=== PATIENT | female | born 1980 | race Caucasian/White ===

== ENCOUNTER 2022-07-04 00:01 | Day surgery (SDC) | payer BC, SELFPAY ==
[2022-06-27 13:51] VITALS: BMI 29.5
--- NOTE | 2022-06-27 13:53 | SUR.PREOP ---
Report to the Outpatient Waiting Room, entrance under the green pavilion located off [facility], at time_0900 on date __07/04/22 . Planned Procedure Time: _1100 . Time changes happen often and if your time is changed the preop area will call you the afternoon before. - You and your visitor will be asked to self-screen and do not enter if you have any COVID symptoms. - Only one visitor is requested with a max of two and NO children visitors are allowed at this time. - The patient visitor may be requested to leave or wait in car when not with patient due to distancing restrictions. - A mask is optional within the hospital. Patients may have clear liquids (water, carbonated beverages, clear teas, apple juice) until 3 hours prior to surgery with a maximum of 20 ounces. - No food from midnight until time of surgery - Infants may have breast milk until 4 hours before surgery, infant formula 6 hours prior to surgery. - Children will be allowed to drink immediately following surgery. If applicable, please bring a bottle or sippy cup to assist with drinking. Juice, water, soda, and popsicles are readily available. For infants on formula, please bring formula the day of surgery. Pacifiers are allowed. Take the following medications with a SIP of water the morning of surgery: __n/a Medications to discontinue per physician ___n/a Date to take last dose___n/a Please no make-up, nail turkmen, hairspray, perfume, deodorant, or body powder the day of surgery. No jewelry (including any body piercings) or valuables the day of surgery, leave them at home. Please take a shower or bath the night before, or the morning of, surgery with an antibacterial soap. Wear comfortable, loose fitting clothing. Children are encouraged to wear pajamas. - Jewelry must be removed prior to entering the operating room. Rings and piercings that are not removed may be cut off. - The hospital will not accept responsibility for valuables. - Please leave all valuables, including medications, at home the day of surgery. If you are going home after surgery, a licensed route driver salesperson must drive you home. - NO public transportation without another adult if you receive anesthesia. - We recommend that an adult stay with you for 24 hours following discharge. - We also recommend that you do not drive, make important decision, drink alcoholic beverages, or take any drugs that were not prescribed by your health care provider for at least 24 hours after your discharge time. For Pediatric surgeries, we recommend two adults accompany the child home. Follow any additional instructions given to you from your surgeon. If you or anyone in your household have experienced Covid symptoms in the past week, please notify your surgeon or the nurse liaison at the phone number below for possible testing. Telephone instructions given to _josy jaffe__and asked if any additional questions and then verbalized understanding. Patient advised to call surgeon office or pre surgery nurse liaison [phone] if any additional questions.
--- NOTE | 2022-07-04 07:39 | WPDHPUPDATE1 ---
History and Physical Update Update Date/Time: 07/04/22 07:39 History and Physical has been reviewed, including an updated exam of the patient. There are NO changes in the patient's condition. Risks, benefits, and alternatives have been discussed and questions answered. Patient agrees to proceed with procedure.
--- NOTE | 2022-07-04 07:39 | PM.HPGS ---
History of Present Illness History of Present Illness Consent: Risks, benefits, and alternatives have been discussed and questions answered. Patient agrees to proceed with procedure. Chief complaint: menorrhagia Narrative: Olga Portillo is a 41 year old female with irregular and heavy cycles. It was recommended to proceed with D&C hysteroscopy. Risks of infection, bleeding, perforation, and possible pathology were reviewed. Patient voices understanding and agrees to proceed. Review of Systems Constitutional: Constitutional: Reports fatigue Genitourinary: Genitourinary: Reports sexual dysfunction ( Pain with intercourse) and Reports vaginal dryness Psychiatric: Psychiatric: Reports anxiety [facility] Past Medical History Medical History (Updated 07/04/22 @ 08:02 by Gracia Garcia MD) History of duodenal cancer status post surgical resection, chemotherapy, and radiation in 2020 History of pulmonary embolism History of sterilization procedure Essure 2011 Surgical History Surgical History (Updated 07/04/22 @ 08:01 by Gracia Garcia MD) H/O resection of pancreas approximately 40% of the pancreas resected with the duodenum February 2021 H/O right nephrectomy September 2020 Hx laparoscopic cholecystectomy Status post primary low transverse section Social History Social History Smoking status: Former smoker Tobacco type: cigarettes and e-cigarettes/vaping Smoking end date: 07/31/15 Additional smoking assessment comments: 1ppd x10,currently vapes Alcohol intake: current Drinks per week: 10 Living arrangements: with family Spiritual care concerns: No Meds Home Medications and Allergies Home Medications Medication Instructions Recorded Confirmed Type No Home Medications 06/27/22 06/27/22 History Allergies Allergy/AdvReac Type Severity Reaction Status Date / Time Sulfa (Sulfonamide Allergy Severe Blister Verified 06/27/22 13:47 Antibiotics) ciprofloxacin Allergy Intermediate Rash Verified 06/27/22 13:49 clindamycin Allergy Intermediate Rash Verified 06/27/22 13:50 vancomycin Allergy Intermediate Rash Verified 06/27/22 13:49 Exam Const: General: healthy appearing and alert Orientation/consciousness: patient oriented x3 Resp: Effort & Inspection: normal respiratory effort GI: GI Palp: Yes Soft to palpation, No Tenderness to palpation present (GI) and No Palpable mass present : External Female Exam: normal external appearance Speculum Exam - Vagina: normal appearance of the vagina and normal vaginal discharge Speculum Exam - Cervix: normal appearance of the cervix Bimanual exam- vagina & uterus: uterine size normal and consistency normal Bimanual Exam- Adnexa, other: normal adnexae and No adnexal tenderness Neuro: General: patient oriented x3 Assessment and Plan Assessment and plan (1) Menorrhagia: Code(s): N92.0 - Excessive and frequent menstruation with regular cycle Status: Acute Assessment and Plan: plan is to proceed with D&C hysteroscopy
[2022-07-04 09:27] VITALS: BP 109/61; PULSE 62; RESP 16; TEMP 36.3; O2SAT 98
[2022-07-04] MEDS: ACETAMINOPHEN 500 MG TABLET 1000 MG PO (09:37)
--- NOTE | 2022-07-04 09:41 | WPDANESEPPF ---
Anes - Initial Pre Proc Eval Procedure: Operation Date: 07/04/22 11:00 Proposed Procedures p Hysteroscopy Dilation and Curettage - Gracia Garcia MD Date/Time: 07/04/22 09:41 Surgeon: Gracia Garcia MD Pre Op Diagnosis: menorrhagia Patient Data Age: 41 Gender: F Height: 1.75 m Weight: 90.05 kg Last Vital Signs Temp 36.3 C L 07/04/22 09:27 Pulse 62 07/04/22 09:27 Resp 16 07/04/22 09:27 BP 109/61 07/04/22 09:27 Pulse Ox 98 07/04/22 09:27 O2 Del Method Room Air 07/04/22 09:27 Allergies Allergy/AdvReac Type Severity Reaction Status Date / Time Sulfa (Sulfonamide Allergy Severe Blister Verified 07/04/22 09:34 Antibiotics) ciprofloxacin Allergy Intermediate Rash Verified 07/04/22 09:34 clindamycin Allergy Intermediate Rash Verified 07/04/22 09:34 vancomycin Allergy Intermediate Rash Verified 07/04/22 09:34 Home Medications Medication Instructions Recorded Confirmed Type No Home Medications 06/27/22 07/04/22 History Patient hx anesthesia problems: none Family hx anesthesia problems: none Results Review: All pre-operative results and documents have been reviewed as part of the pre-operative evaluation. [facility] Past Medical History Medical History History of duodenal cancer status post surgical resection, chemotherapy, and radiation in 2020 History of pulmonary embolism History of sterilization procedure Essure 2011 Surgical History Surgical History H/O resection of pancreas approximately 40% of the pancreas resected with the duodenum February 2021 H/O right nephrectomy September 2020 Hx laparoscopic cholecystectomy Status post primary low transverse section Social History Social History Smoking status: Former smoker Tobacco type: cigarettes and e-cigarettes/vaping Smoking end date: 07/31/15 Additional smoking assessment comments: 1ppd x10,currently vapes Alcohol intake: current Drinks per week: 10 Living arrangements: with family Spiritual care concerns: No Anes - Eval Final PreProcedure Day of Procedure 07/04/22 09:41 Patient weight: overweight Heart: regular rate and rhythm Lungs: clear to auscultation Airway: Mallampati scale class II Neurological: alert and oriented Last oral intake: >/= 8 hours ASA classification: III Emergent: no Anesthetic plan: proceed Anesthesia type and monitoring: general GIVS and standard monitoring Results Review: All pre-operative results and documents have been reviewed as part of the pre-operative evaluation. Informed Consent: The patient's anesthetic plan and its attendant risks and benefits were discussed with the patient/family/POA. Questions were solicited and answers provided to the satisfaction of the patient/family/POA.
[2022-07-04] MEDS: SCOPOLAMINE 1.5 MG PATCH TRANSDERM (09:59)
[2022-07-04] MEDS: LACTATED RINGERS 1,000 ML 30 ML IV CONT ×2 (09:59→10:35)
[2022-07-04] MEDS: LIDOCAINE HCL 1% PF 30 ML VIAL 10 ML INFILTRATE (10:00)
--- NOTE | 2022-07-04 10:34 | W.PM.PROC2 ---
Procedure Note - Detailed Date of Procedure 07/04/22 Pre-op Diagnosis menorrhagia Post-op Diagnosis Same Procedure Performed D&C hysteroscopy Surgeon Gracia Garcia MD Anesthesia MAC and Local Findings uterus sounds to 10cm and appears grossly normal Description of Procedure The patient is taken to the operating room and placed in the dorsal lithotomy position under anesthesia. She was prepped and draped in usual sterile fashion. [place] speculum was placed in the vagina and the cervix grasped on the anterior lip with a tenaculum. The cervix is grasped on the anterior lip with a tenaculum and injected lidocaine in each quadrant. The uterus is sounded to 11cm. The cervix is serially dilated to an 8 Hegar. The diagnostic hysteroscope was placed with no abnormalities noted it is removed. The sharp curette is used to curette the endometrium until a good uterine cry was noted in all areas. All instruments are removed. The patient was awakened from anesthesia and taken to recovery in stable condition. Sponge, needle, and instrument counts are correct per the OR staff. Estimated Blood Loss 5 Drains No Packing No Pathology Yes ( Endometrial curettings) Complications No immediate complications Condition Stable Disposition PACU
[2022-07-04 10:35] VITALS: BP 96/58; PULSE 55; RESP 14; O2SAT 98
[2022-07-04 11:00] VITALS: BP 96/58; PULSE 55; RESP 14; O2SAT 97
[2022-07-04 11:15] VITALS: BP 103/70; PULSE 55; RESP 14
== END 2022-07-04 11:19 | disposition home or self-care (01) ==
PROVIDERS: PCP Family Medicine; Visit Provider Obstetrics & Gynecology Gynecology
PROC: 0U5B8ZZ Destruction of Endometrium, Via Natural or Artificial Opening Endoscopic (ICD-10-PCS; CPT 58563; principal; 2022-07-04 11:00)
DX: N92.0 Excessive and frequent menstruation with regular cycle (principal); Z85.028 Personal history of other malignant neoplasm of stomach; Z92.21 Personal history of antineoplastic chemotherapy; Z92.3 Personal history of irradiation; Z86.711 Personal history of pulmonary embolism; Z90.49 Acquired absence of other specified parts of digestive tract; Z90.411 Acquired partial absence of pancreas; Z90.5 Acquired absence of kidney; F17.290 Nicotine dependence, other tobacco product, uncomplicated
CPT/HCPCS: 58558; 88305; A9270; J2250; J2405; J2704; J3010; J7030; J7120